=== PATIENT | male | born 1970 | race Caucasian/White ===

== ENCOUNTER 2020-09-03 09:57 | Outpatient (CLI) | payer OTHER ==
--- NOTE | 2020-09-03 12:20 | MRI ---
MRI OF THE RIGHT KNEE PERFORMED WITHOUT CONTRAST ENHANCEMENT: Date; 09/03/2020 HISTORY: Medial knee pain. FINDINGS: Anterior, as well as posterior cruciate ligaments are intact. The lateral meniscus has a normal shape and appearance. There is an undersurface flap-type tear invol ving the posterior horn extending into the body of the meniscus which is also mildly truncated. The medial and lateral collateral ligaments and iliotibial band regions appear unremarkable. The patellar articular cartilage is intact. There is articular cartilage surface irregularity to the lateral facet. Medial and lateral patellar retinaculum and quadriceps and patellar tendons are normal . There is also noted to be articular cartilage loss along the lateral side of the trochlear groove. Be nign-appearing cystic lesion incidentally noted in the distal femur, and a small cyst along the media l side of the fibula head. This cyst extends into the adjacent soft tissues, but probably not of sign ificance as it appears to be above the level of the peroneal nerve. IMPRESSION: 1. Medial meniscus tear. 2. 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 POS: KIMI
== END 2020-09-03 09:58 | disposition home or self-care (01) ==
LOC: SCSMRI 09:57
PROVIDERS: ATTEND Orthopaedic Surgery
DX: S83.241A Other tear of medial meniscus, current injury, right knee, initial encounter (principal); M17.11 Unilateral primary osteoarthritis, right knee

== ENCOUNTER 2021-01-24 14:29 | Outpatient (CLI) | payer OTHER | END 2021-01-24 14:30 | disposition home or self-care (01) | LOC: LABBT 14:29 | PROVIDERS: ATTEND Orthopaedic Surgery | DX: Z01.812 Encounter for preprocedural laboratory examination (principal); Z20.822 Contact with and (suspected) exposure to COVID-19; S83.241A Other tear of medial meniscus, current injury, right knee, initial encounter | CPT/HCPCS: 80048; 85025; 87635; U0003; U0005 ==

== ENCOUNTER 2021-01-29 08:39 | Day surgery (SDC) | payer OTHER ==
[2021-01-28 12:07] VITALS: BMI 30.3
[2021-01-29] MEDS ORDERED: PROPOFOL 20 ML ONE (09:43)
[2021-01-29] MEDS ORDERED: Fentanyl 100 MCG/2 ML VIAL ONE (11:50)
[2021-01-29] MEDS ORDERED: Ondansetron PF 4 MG/2 ML Vial ONE (11:58)
[2021-01-29] MEDS ORDERED: Ketorolac Tromethamine 30 MG/ML VIAL ONE (11:58)
[2021-01-29] MEDS ORDERED: Lidocaine 2% w/Epinephrine 1:200K 20 ML VIAL ONE (11:58)
[2021-01-29] MEDS ORDERED: Bupivacaine PF 0.5% 30 ML VIAL ONE (11:58)
[2021-01-29] MEDS ORDERED: PROPOFOL 200 MG/20 ML VIAL ONE (11:58)
[2021-01-29] MEDS ORDERED: Dexamethasone 20 MG/5 ML VIAL ONE (11:58)
== END 2021-01-29 14:30 | disposition home or self-care (01) ==
LOC: SDC 08:39
PROVIDERS: ATTEND Orthopaedic Surgery
PROC: 0SBC4ZZ Excision of Right Knee Joint, Percutaneous Endoscopic Approach (ICD-10-PCS; principal; 2021-01-29)
DX: S83.231A Complex tear of medial meniscus, current injury, right knee, initial encounter (principal); M17.11 Unilateral primary osteoarthritis, right knee; M94.261 Chondromalacia, right knee; F17.220 Nicotine dependence, chewing tobacco, uncomplicated; Z79.899 Other long term (current) drug therapy
CPT/HCPCS: J0690; J1100; J1885; J2405; J2704; J3010; S0020

== ENCOUNTER 2022-02-27 16:30 | Outpatient (CLI) | payer BC | END 2022-02-27 16:31 | disposition home or self-care (01) | LOC: SLEEPLAB 16:30 | PROVIDERS: ATTEND Internal Medicine Pulmonary Disease | DX: G47.33 Obstructive sleep apnea (adult) (pediatric) (principal); R06.83 Snoring | CPT/HCPCS: 95800 ==